=== PATIENT | female | born 1960 | race African-American/Black ===

== ENCOUNTER 2016-10-15 20:28 | Emergency (ER) | payer MEDICAID | END 2016-10-15 22:00 | disposition left against medical advice (07) | LOC: ER 21:48 | DX: R42 Dizziness and giddiness (principal); Z53.21 Procedure and treatment not carried out due to patient leaving prior to being seen by health care provider ==

== ENCOUNTER 2023-06-20 05:35 | Emergency (ER) | payer MEDICAID ==
[~2023-06-20] VITALS: Ht 165.1 cm; Wt 82.0 kg
[2023-06-20 05:45] VITALS: O2SAT 97
[2023-06-20 08:07] LABS: ALANINE AMINOTRANSFERASE 80 IU/L (10-49); ALBUMIN 4.4 g/dL (3.2-4.8); ASPARTATE AMINOTRANSFERASE 41 IU/L (<34); BILIRUBIN TOTAL 1.2 mg/dL (0.1-1.0); CALCIUM 9.5 mg/dL (8.7-10.4); CARBON DIOXIDE 25 mEq/L (21-32); CHLORIDE 107 mEq/L (98-107); CREATININE 0.8 mg/dL (0.6-1.0); GLUCOSE 229 mg/dL (70-105); PROTEIN TOTAL 7.5 g/dL (6.0-8.3); SODIUM 139 mEq/L (136-145); TROPONIN I HIGH SENSITIVITY 9 ng/L (3.0-34); UREA NITROGEN BLOOD 9 mg/dL (9-23)
[2023-06-20 08:27] LABS: BASOPHILS % 0.8 % (0.0-2.0); EOSINOPHILS % 3.8 % (0.0-5.0); HEMATOCRIT. 43.8 % (36.0-48.0); HEMOGLOBIN. 13.9 g/dL (12.0-16.0); LYMPHOCYTES % 41.5 % (20.0-50.0); MEAN CORPUSCULAR HEMOGLOBIN 30.2 pg (28.0-32.0); MEAN CORPUSCULAR HGB CONC 31.8 g/dL (31.0-37.0); MEAN PLATELET VOLUME 10.8 fl (7.4-10.4); NEUTROPHILS % 43.9 % (40.0-76.0); PLATELET 222 x1000/uL (130-400); RED BLOOD CELL COUNT 4.61 mill/uL (4.2-5.4); RED CELL DISTRIBUTION WIDTH 13.3 % (11.6-14.6); WHITE BLOOD COUNT 5.4 x1000/uL (4.5-11.0)
[2023-06-20 08:33] LABS: DIFFERENTIAL COMMENT 1
[2023-06-20] MEDS: HYDRALAZINE 20MG/ML VIAL IV ONE (09:18)
[2023-06-20 09:29] VITALS: TEMP 98.9
[2023-06-20] MEDS ORDERED: IBUP-2028 PO (09:49)
[2023-06-20] MEDS ORDERED: LOSA1TAB34 PO (09:49)
[2023-06-20 10:25] VITALS: BP 160/79; PULSE 71; RESP 16
[2023-06-20] MEDS: IBUPROFEN 400MG TABLET PO ONE (10:25)
[2023-06-20] MEDS: METOCLOPRAMIDE HCL 10MG TABLET PO ONE (10:25)
== END 2023-06-20 10:49 | disposition home or self-care (01) ==
LOC: ER 06:08 → CANBEDREQ 12:01
DX: I10 Essential (primary) hypertension (principal); Z98.890 Other specified postprocedural states
CPT/HCPCS: 99285; 96374; 70450; 71045; 80053; 83880; 85025; 84484; 36415; 93005; J8597; J0360

== ENCOUNTER 2023-12-27 22:41 | Emergency (ER) | payer MEDICAID ==
[~2023-12-27] VITALS: Ht 162.6 cm; Wt 78.0 kg
[~2023-12-27 22:41] MED LIST: IBUP-2028 PO; LOSA1TAB34 PO
[2023-12-27 22:46] VITALS: O2SAT 100
[2023-12-27 22:48] VITALS: BP 146/90; PULSE 90; TEMP 98.3; O2SAT 100
[2023-12-28 02:20] LABS: BASOPHILS % 0.8 % (0.0-2.0); DIFFERENTIAL COMMENT 0; EOSINOPHILS % 5.1 % (0.0-5.0); LYMPHOCYTES % 43.5 % (20.0-50.0); MEAN CORPUSCULAR HGB CONC 32.4 g/dL (31.0-37.0); MEAN CORPUSCULAR VOLUME 92.5 fL (81.0-99.0); MONOCYTES % 8.3 % (2.0-8.0); NEUTROPHILS % 42.3 % (40.0-76.0); PLATELET 194 x1000/uL (130-400); RED BLOOD CELL COUNT 4.32 mill/uL (4.2-5.4); WHITE BLOOD COUNT 5.4 x1000/uL (4.5-11.0)
[2023-12-28 02:27] LABS: CHLORIDE 107 mEq/L (98-107); POTASSIUM 3.9 mEq/L (3.5-5.1); SODIUM 139 mEq/L (136-145)
[2023-12-28 02:28] LABS: CALCIUM 9.4 mg/dL (8.7-10.4); CARBON DIOXIDE 27 mEq/L (21-32)
[2023-12-28 02:33] LABS: CREATININE 0.9 mg/dL (0.6-1.0); GLUCOSE 242 mg/dL (70-105); UREA NITROGEN BLOOD 12 mg/dL (9-23)
[2023-12-28] MEDS: BACITRACIN ZINC OINT UDPKT TOP ONE (03:30)
[2023-12-28] MEDS: IBUPROFEN 600MG TABLET PO NR (03:30)
[2023-12-28] MEDS ORDERED: NAPR-681 MT (04:14)
[2023-12-28] MEDS ORDERED: CEPH500C2 MT (04:14)
[2023-12-28] MEDS ORDERED: DOXY100T28 MT (04:14)
[2023-12-28] MEDS ORDERED: MUPI15CR11 TP (04:14)
[2023-12-28 06:30] VITALS: RESP 16
== END 2023-12-28 07:00 | disposition home or self-care (01) ==
LOC: ER 22:41
DX: S40.021A Contusion of right upper arm, initial encounter (principal); S80.811A Abrasion, right lower leg, initial encounter; L03.115 Cellulitis of right lower limb; E11.65 Type 2 diabetes mellitus with hyperglycemia; I10 Essential (primary) hypertension; Z90.710 Acquired absence of both cervix and uterus; Z79.899 Other long term (current) drug therapy; W18.39XA Other fall on same level, initial encounter; Y93.89 Activity, other specified; Y92.89 Other specified places as the place of occurrence of the external cause; Y99.8 Other external cause status
CPT/HCPCS: 36415; 73502; 73590; 73610; 80048; 85025; 93970; 99284

== ENCOUNTER 2025-03-01 19:57 | Inpatient (IN) | payer MEDICAID ==
[~2025-03-01] VITALS: Ht 165.1 cm; Wt 77.1 kg
[~2025-03-01 19:57] MED LIST changes: +CEPH500C2 MT; +DOXY100T28 MT; +MUPI15CR11 TP; +NAPR-681 MT
[2025-03-01] MEDS ORDERED: OXYCODONE HCL/ACETAMINOPHEN 5/325MG TABLET PO ONE (20:45)
[2025-03-01 20:53] LABS: CLARITY URINE TURBID (CLEAR); COLOR URINE ORANGE (YELLOW); GLUCOSE URINE NEGATIVE (NEGATIVE); KETONES URINE NEGATIVE (NEGATIVE); LEUKOCYTE ESTERASE URINE TRACE (NEGATIVE); NITRITE URINE NEGATIVE (NEGATIVE); OCCULT BLOOD URINE 3+ (NEGATIVE); PH URINE 5.0 (4.5-8.0); PROTEIN URINE 2+ (NEGATIVE); SPECIFIC GRAVITY URINE 1.014 (1.005-1.030); UROBILINOGEN URINE 0.2 E.U./dL (0.2-1.0)
[2025-03-01 20:57] LABS: BASOPHILS % 0.9 % (0.0-2.0); EOSINOPHILS % 4.9 % (0.0-5.0); HEMATOCRIT. 40.0 % (36.0-48.0); HEMOGLOBIN. 13.3 g/dL (12.0-16.0); LYMPHOCYTES % 36.9 % (20.0-50.0); MEAN PLATELET VOLUME 9.3 fl (7.4-10.4); MONOCYTES % 9.6 % (2.0-8.0); NEUTROPHILS % 47.7 % (40.0-76.0); PLATELET 229 x1000/uL (130-400); RED BLOOD CELL COUNT 4.35 mill/uL (4.2-5.4); RED CELL DISTRIBUTION WIDTH 13.9 % (11.6-14.6)
[2025-03-01 21:13] LABS: TROPONIN I HIGH SENSITIVITY 7 ng/L (3.0-34); UREA NITROGEN BLOOD 19 mg/dL (9-23)
[2025-03-01 21:14] LABS: ASPARTATE AMINOTRANSFERASE 50 IU/L (<34); BILIRUBIN DIRECT 0.2 mg/dL (<=3.0)
[2025-03-01 21:15] LABS: BILIRUBIN TOTAL 0.9 mg/dL (0.1-1.0); PROTEIN TOTAL 7.5 g/dL (6.0-8.3)
[2025-03-01 21:24] LABS: CREATININE 1.7 mg/dL (0.6-1.0)
[2025-03-01 21:27] LABS: BACTERIA URINE 2+; RBC URINE TNTC /hpf (0-2); SQUAMOUS EPITHELIAL CELL URINE 1+ /lpf (RARE/1+); WBC URINE 0-2 /hpf (0-2)
[2025-03-01] MEDS: OXYCODONE HCL/ACETAMINOPHEN 5/325MG TABLET PO SCH (23:18)
[2025-03-01] MEDS: KETOROLAC 15MG/ML VIAL IM SCH (23:18)
[2025-03-01] MEDS: KETOROLAC 15MG/ML VIAL IM ONE (23:19)
[2025-03-02] MEDS: TAMSULOSIN HCL 0.4MG SR CAPSULE PO ONE (03:29)
[2025-03-02] MEDS: IBUPROFEN 800MG TABLET PO ONE (03:29)
[2025-03-02] MEDS: SODIUM CHLORIDE 0.9% 1,000 ML IV ONE (03:50)
[2025-03-02 04:00] VITALS: BP 115/63; PULSE 75; RESP 18; TEMP 36.8; O2SAT 99
[2025-03-02] MEDS ORDERED: IPRATROPIUM/ALBUTEROL 0.5-3(2.5)MG/3ML NEB HHN PRN (05:00)
[2025-03-02] MEDS ORDERED: ONDANSETRON HCL 4MG/2ML INJ IV PRN (05:00)
[2025-03-02] MEDS ORDERED: ACETAMINOPHEN 325MG TABLET PO PRN (05:00)
[2025-03-02] MEDS ORDERED: HYDRALAZINE 20MG/ML VIAL IV PRN (05:30)
[2025-03-02] MEDS ORDERED: DEXTROSE 50% WATER 50ML SYRINGE IV PRN (05:30)
[2025-03-02] MEDS: PANTOPRAZOLE SODIUM 40 MG/VIAL IV SCH (05:45)
[2025-03-02] MEDS ORDERED: POTASSIUM CHLORIDE 40 MEQ in DEXT 5% WATER 230 ML IV ONE (05:45)
[2025-03-02] MEDS: KCL 20MEQ/100ML X 2 FOR TOTAL KCL 40MEQ/200ML IV SCH (06:08)
[2025-03-02] MEDS: BLOOD SUGAR DIAGNOSTIC STRIP TEST SCH (06:27)
[2025-03-02] MEDS: SODIUM CHLORIDE 0.9% 1,000 ML IV SCH (07:15)
[2025-03-02] MEDS: INSULIN LISPRO 100 UNITS/ML SUBCUT SCH (07:50)
[2025-03-02 08:00] VITALS: BP 112/78; PULSE 78; RESP 20; TEMP 36.2; O2SAT 98
[2025-03-02] MEDS: CEFTRIAXONE 1GM/50ML 50 ML IV SCH (10:00)
[2025-03-02] MEDS: TAMSULOSIN HCL 0.4MG SR CAPSULE PO SCH (10:31)
[2025-03-02] MEDS: LOSARTAN 50 MG TABLET PO SCH (10:35)
[2025-03-02 10:36] VITALS: BP 133/78; PULSE 79; RESP 20; TEMP 36.4736
[2025-03-02 12:00] VITALS: BP 129/79; PULSE 75; RESP 18; TEMP 36.4; O2SAT 98
[2025-03-02] MEDS: POTASSIUM CHLORIDE 20MEQ TABLET SR PO SCH (12:15)
[2025-03-02 13:21] LABS: TRIGLYCERIDE 167 mg/dL (0-150)
[2025-03-02 13:22] LABS: LDL CHOLESTEROL 191 mg/dL (5-100)
[2025-03-02] MEDS: POTASSIUM CHLORIDE 20MEQ TABLET SR PO NR (13:58)
[2025-03-02] MEDS: ACETAMINOPHEN 325MG TABLET PO PRN (14:33)
[2025-03-02 16:00] VITALS: BP 133/70; PULSE 86; RESP 20; TEMP 36.2; O2SAT 99
[2025-03-02 20:00] VITALS: BP 122/70; PULSE 82; RESP 18; TEMP 36.6; O2SAT 99
[2025-03-03] MEDS ORDERED: FAMOTIDINE 20MG/2ML VIAL IV ONE ×2 (07:33→09:43)
[2025-03-03] MEDS ORDERED: ACETAMINOPHEN 1000MG/100ML 100 ML IV ONE (07:33)
[2025-03-03] MEDS ORDERED: DEXAMETHASONE 4MG/ML 1ML VIAL ONE (07:34)
[2025-03-03] MEDS ORDERED: ONDANSETRON HCL 4MG/2ML INJ ONE (07:34)
[2025-03-03] MEDS ORDERED: PROPOFOL 200MG/20ML VIAL IV ONE (07:35)
[2025-03-03] MEDS ORDERED: LIDOCAINE HCL 1% 10 MG/ML 10ML VIAL ONE (07:35)
[2025-03-03 08:00] VITALS: BP 163/84; PULSE 108; RESP 19; TEMP 36.4; O2SAT 97
[2025-03-03] MEDS: MAGNESIUM 2 G PREMIX 50 ML IV NR (08:22)
[2025-03-03] MEDS ORDERED: FENTANYL CITRATE/PF 50MCG/ML 2ML VIAL ONE (09:41)
[2025-03-03] MEDS ORDERED: LORAZEPAM 2MG/ML UD SYRINGE IV NR (11:41)
[2025-03-03] MEDS ORDERED: LABETALOL 5MG/ML 4ML INJ IV PRN (12:00)
[2025-03-03] MEDS ORDERED: FENTANYL CITRATE/PF 50MCG/ML 2ML VIAL IV PRN (12:00)
[2025-03-03] MEDS ORDERED: ONDANSETRON HCL 4MG/2ML INJ IV PRN (12:00)
[2025-03-03] MEDS ORDERED: HYDRALAZINE 20MG/ML VIAL IV PRN (12:00)
[2025-03-03] MEDS: HYDROMORPHONE HCL/PF 1MG/ML INJ IV PRN (12:09)
[2025-03-03] MEDS: ALBUTEROL (0.083%) 2.5MG/3ML NEB HHN SCH (13:11)
[2025-03-03 13:12] VITALS: PULSE 86; RESP 18; O2SAT 98
[2025-03-03 16:00] VITALS: BP 148/78; PULSE 92; RESP 20; TEMP 36.4; O2SAT 98
[2025-03-03 20:00] VITALS: BP 176/96; PULSE 93; RESP 17; TEMP 36.7; O2SAT 97
[2025-03-03] MEDS ORDERED: NALOXONE HCL 0.4MG/ML VIAL IV PRN (20:45)
[2025-03-03] MEDS: MORPHINE SULFATE 2 MG/ML INJ (NOT FOR IM USE) IV PRN (21:43)
[2025-03-03] MEDS: ATORVASTATIN CALCIUM 40MG TABLET PO SCH (21:43)
[2025-03-03] MEDS: HYDRALAZINE 10 MG in SODIUM CHLORIDE 0.9% 49.5 ML IV PRN (21:46)
[2025-03-04] VITALS: BP 141/76; PULSE 117; RESP 17; TEMP 36.8; O2SAT 99
[2025-03-04] MEDS: HYDROMORPHONE HCL/PF 2MG/ML INJ IV NR (01:00)
[2025-03-04 04:00] VITALS: BP 124/72; PULSE 110; RESP 17; TEMP 36.9; O2SAT 95
[2025-03-04 08:00] VITALS: BP 121/67; PULSE 96; RESP 17; TEMP 36.7; O2SAT 95
[2025-03-04] MEDS: TRAMADOL 50MG TABLET PO PRN (11:34)
[2025-03-04 12:00] VITALS: BP 164/92; PULSE 94; RESP 18; TEMP 37.1; O2SAT 95
[2025-03-04] MEDS: CLONIDINE 0.1MG TABLET PO PRN (15:33)
[2025-03-04 16:00] VITALS: BP 154/84; PULSE 90; RESP 18; TEMP 36.5; O2SAT 95
[2025-03-04 20:00] VITALS: BP 130/65; PULSE 97; RESP 18; TEMP 36.4; O2SAT 95
[2025-03-05] VITALS: BP 162/82; PULSE 95; RESP 21; TEMP 36.4; O2SAT 100
[2025-03-05 08:00] VITALS: BP 166/88; PULSE 93; RESP 18; TEMP 36.3; O2SAT 91
[2025-03-05 08:29] VITALS: PULSE 84
== END 2025-03-05 11:54 | disposition home or self-care (01) | DRG 446 ==
LOC: ER 19:57 → 6EST 03-02 04:18 → EDBEDREQ 03-02 04:43 → EDBEDREQTM 03-02 04:43 → ENRESERV 03-02 05:12
PROVIDERS: ADMIT Hospitalist; ATTEND Hospitalist
PROC: 0TBB8ZZ Excision of Bladder, Via Natural or Artificial Opening Endoscopic (ICD-10-PCS; principal; 2025-03-03)
DX: D49.4 Neoplasm of unspecified behavior of bladder (principal); N17.9 Acute kidney failure, unspecified; E11.9 Type 2 diabetes mellitus without complications; I10 Essential (primary) hypertension; E87.6 Hypokalemia; N20.0 Calculus of kidney; R31.0 Gross hematuria; E78.5 Hyperlipidemia, unspecified; Z79.899 Other long term (current) drug therapy; Z90.710 Acquired absence of both cervix and uterus
CPT/HCPCS: 36415; 74176; 76770; 80048; 80061; 80076; 81003; 82010; 82550; 82962; 83036; 83735; 83880; 84484; 85014; 85018; 85025; 88305; 93005; 93970; 94070; 94640; 96372; 99285; A4615; J0360; J0696; J1100; J1171; J1308; J1815; J1885; J2003; J2060; J2270; J2405; J2470; J2704; J3010; J3475; J3480; J7030; A4217; J0131